=== PATIENT | female | born 1955 | race Caucasian/White ===

== ENCOUNTER 2021-10-25 12:37 | Emergency (ER) | payer MEDICARE, OTHER ==
[~2021-10-25] VITALS: Ht 160 cm; Wt 97.5 kg
--- OUTSIDE RECORDS SUMMARY | 2021-10-25 12:38 | XMS ---
PreManage Notification: CYNDEE STONE [employer] Events No recent Security Events currently on file CRITERIA MET - PDMP CARE PROVIDERS MAGALIS NGUYEN Community Health Worker 05/04/2019-Current PHONE: [phone] Kandice has no Care Guidelines for this patient. [facility] VISIT COUNT (12 MO.) [address] [facility] TOTAL 2 NOTE: Visits indicate total known visits. ED/UCC VISIT TRACKING (12 MO.) 10/25/2021 12:[address] [facility] [place] TYPE: Emergency COMPLAINT: - ALLERGIC REACTION 08/20/2021 13:[address] [facility] [place] TYPE: Emergency DIAGNOSES: - Unspecified fall, initial encounter - fall head injury - Concussion without loss of consciousness, initial encounter - Contusion of scalp, initial encounter INPATIENT VISIT TRACKING (12 MO.) No inpatient visits to display in this time frame [email or web address]
[2021-10-25] MEDS ORDERED: METOCLOPRAMIDE10 MG PO (12:51)
[2021-10-25] MEDS ORDERED: NORTRIPTYLINE H25 MG PO (12:51)
[2021-10-25] MEDS ORDERED: HYDROCORTISONE454 GM TOP (12:51)
[2021-10-25] MEDS ORDERED: PROPRANOLOL HCL60 MG PO (12:51)
[2021-10-25] MEDS ORDERED: OXYCODONE HCL10 MG PO (12:51)
[2021-10-25] MEDS ORDERED: HYDROCHLOROTHIA25 MG PO (12:52)
[2021-10-25] MEDS ORDERED: DIAZEPAM5 MG PO (12:52)
[2021-10-25] MEDS ORDERED: ATORVASTATIN CA10 MG PO (12:52)
[2021-10-25] MEDS ORDERED: TOPIRAMATE50 MG PO (12:52)
[2021-10-25] MEDS ORDERED: LOSARTAN POTAS100 MG PO (12:52)
[2021-10-25] MEDS ORDERED: BUPROPION HCL200 MG PO (12:52)
== END 2021-10-25 14:25 | disposition home or self-care (01) ==
LOC: ED 12:37
DX: F41.9 Anxiety disorder, unspecified (principal); Z88.8 Allergy status to other drugs, medicaments and biological substances; Z79.899 Other long term (current) drug therapy; Z79.891 Long term (current) use of opiate analgesic
CPT/HCPCS: 99283